=== PATIENT | female | born 2000 | race Caucasian/White ===

== ENCOUNTER 2022-03-13 17:18 | Emergency (ER) | payer OTHER, BC ==
[~2022-03-13] VITALS: Ht 165.1 cm; Wt 60.8 kg
[2022-03-13] MEDS ORDERED: AUGMENTIN 500-1 EACH PO (17:49)
== END 2022-03-13 18:00 | disposition home or self-care (01) ==
LOC: ED 17:18
DX: S61.250A Open bite of right index finger without damage to nail, initial encounter (principal); W55.01XA Bitten by cat, initial encounter
CPT/HCPCS: 99283

== ENCOUNTER 2022-05-14 16:54 | Emergency (ER) | payer BC ==
[~2022-05-14] VITALS: Ht 165.1 cm; Wt 60.8 kg
[~2022-05-14 16:54] MED LIST: AUGMENTIN 500-1 EACH PO
== END 2022-05-14 18:46 | disposition home or self-care (01) ==
LOC: ED 16:54
DX: J10.1 Influenza due to other identified influenza virus with other respiratory manifestations (principal); Z20.822 Contact with and (suspected) exposure to COVID-19
CPT/HCPCS: 87502; 99283; A9270; C9803; U0003